=== PATIENT | male | born 1965 | race Two or more races ===

== ENCOUNTER → 2024-04-08 | Outpatient (CLI) | payer OTHER, MEDICAID, SELFPAY ==
[2024-04-15 06:45] LABS: Testosterone, Free,Dialysis 123.7 pg/mL (35.0-155.0); Testosterone, Total, Dialysis 637 ng/dL (250-1100)
== END | disposition home or self-care (01) ==
LOC: COPL 14:19
PROVIDERS: PCP Family Medicine; Referring Provider Nurse Practitioner Family; Visit Provider Nurse Practitioner Family
DX: E29.1 Testicular hypofunction (principal)
CPT/HCPCS: 36415; 84402; 84403

== ENCOUNTER → 2024-05-06 | Outpatient (CLI) | payer OTHER, MEDICAID, SELFPAY ==
--- NOTE | 2024-05-06 10:45 | XR_ITS ---
Examination: Abdomen sonogram, complete Date and time of exam: May 06, 2024 1022 hours INDICATIONS: Right lower abdominal pain beginning one year ago, history hernia surgery. Technique: Multiple real-time grayscale transabdominal sonographic images of the abdomen have been obtained. Findings: Normal gallbladder Normal common bile duct 0.5 cm Pancreatic head 3.0 cm Aorta not enlarged Liver 17.7 cm fatty infiltration focal fatty sparing Normal hepatopedal portal venous flow Patent IVC Right kidney 13.2 cm renal cortex 1.8 cm Left kidney 11.9 cm cortex 2.4 cm 29 mm upper pole cyst 8 mm midpole cyst left kidney Mild bilateral renal parenchymal scar formation Spleen 10.8 cm IMPRESSION: Normal gallbladder Hepatomegaly fatty liver
== END | disposition home or self-care (01) ==
LOC: CDIM 10:02
PROVIDERS: PCP Nurse Practitioner Family; Referring Provider Nurse Practitioner Family; Visit Provider Nurse Practitioner Family
DX: K76.0 Fatty (change of) liver, not elsewhere classified (principal)
CPT/HCPCS: 76700

== ENCOUNTER 2025-02-15 14:47 | Emergency (ER) | payer OTHER, MEDICAID, SELFPAY ==
[2025-02-15 15:00] VITALS: BP 154/98; PULSE 82; RESP 18; TEMP 36.7; O2SAT 95; BMI 29.9
--- NOTE | 2025-02-15 15:10 | XR_ITS ---
Examination: CT cervical spine without contrast 2-D sagittal reconstructions 2-D coronal reconstructions 3-D reconstructions. Exam date and time: November 16, 2024, 1548 hours INDICATIONS: Patient fell today with injury to the neck, neck pain CTDI:vol (mGy) 17.9 DLP: (mGycm) 430 Technique: Multiple 2 mm axial sections of the cervical spine have been obtained. The coronal and sagittal reconstructions have been obtained. 3-D reconstructions have been obtained. Low dose protocols were performed. One or more of the following dose reduction techniques were used; automated exposure control, adjustment of the mA and/or KV according to patient size, use of iterative reconstruction technique. Findings: Axial sections demonstrate intact base of the skull. C1 exhibit satisfactory relationship to the odontoid. No acute cervical vertebral body fracture seen. Alignment posterior spinous processes satisfactory. Impression: No acute cervical fracture.
--- NOTE | 2025-02-15 15:10 | XR_ITS ---
Examination: CT chest, without intravenous contrast. CT abdomen, without intravenous contrast. CT pelvis, without intravenous contrast. 2-D sagittal and coronal reconstructions. 3-D reconstructions. Date and time of exam: February 15, 2025, 1551 hours INDICATIONS: Patient fell today with injury to the chest and abdomen, chest pain abdomen pain CTDI vol (mgy) 9.24 DLP (MGycm) 745 Technique: Multiple CT images, 3.0 mm slice thickness, obtained chest, abdomen, pelvis, with the high-resolution 64 slice scanner.. Sagittal and coronal 2-D reconstructions are obtained. 3-D reconstructions Low dose protocols were performed. One or more of the following dose reduction techniques were used; automated exposure control, adjustment of the mA and/or KV according to patient size, use of iterative reconstruction technique. Findings: Thoracic aorta pulmonary arteries intact No hemopericardium Atelectasis in the lower lung zones No pneumothorax Manubrium sternum intact Thoracic lumbar vertebral bodies intact with advanced degenerative disc disease L5-S1 Acute nondisplaced fracture right sixth rib in the midaxillary line as well as mildly displaced right seventh rib posterolaterally No liver splenic or renal laceration Contracted gallbladder No pancreatic mass Abdominal aorta intact, no free blood in the abdomen 10 mm fat-containing umbilical hernia Normal appendix Negative for pneumoperitoneum Urinary bladder intact Bones of the pelvis hips intact IMPRESSION: Acute fractures right sixth and seventh ribs Thoracic aorta pulmonary arteries intact No pneumothorax pulmonary contusion or hemothorax No abdominal parenchymal laceration Abdominal aorta intact No free blood in the abdomen or pelvis
--- NOTE | 2025-02-15 15:10 | XR_ITS ---
Examination: Bilateral hands, 6 views. Technique: AP, Oblique, Lateral each hand total 6 views Date and time of exam: February 15, 2025, 1515 hours INDICATIONS: Patient fell out of a truck today with injury to both hands, bilateral hand pain. FINDINGS: No acute fracture involving either hand Old fracture base fifth metacarpal right hand Impression: No acute fracture
--- NOTE | 2025-02-15 15:10 | XR_ITS ---
Examination: CT brain head without contrast. 2-D sagittal coronal reconstructions Date and time of exam: February 15, 2025, 15 4 8 hours INDICATION: Patient fell today with injury to the head, head pain CTDI: vol (mGy): 53.1 DLP: (mGycm): 1065 Technique: Multiple CT axial sections of the brain have been obtained, 5 mm slice thickness. Contrast has not been administered. 2-D sagittal, coronal reconstructions have been obtained Low dose protocols were performed. One or more of the following dose reduction techniques were used; automated exposure control, adjustment of the mA and/or KV according to patient size, use of iterative reconstruction technique. Findings: No significant ventricular enlargement. Intra-axial or extra-axial hemorrhage density is not seen. No mass effect or midline shift Basal cisterns are not remarkable. Fourth ventricle is midline. Cranial vault intact. Impression: Negative for acute hemorrhage, mass effect or midline shift
--- NOTE | 2025-02-15 15:11 | XR_ITS ---
Examination: Shoulder, right, 3 views Technique: Shoulder AP internal rotation, AP external rotation, Y view shoulder, 3 views Exam date and time : January, 1513 hours INDICATIONS: Patient fell out of a truck today with injury of the shoulder, shoulder pain. FINDINGS: No fracture or dislocation No foreign body IMPRESSION: No fracture or dislocation
--- NOTE | 2025-02-15 15:12 | XR_ITS ---
EXAMINATION: Right femur 2 views TECHNIQUE: AP lateral right femur 2 views Date and time: February 15, 2025, 1525 hours INDICATION: Patient fell out of a truck today with injury of the femur, femur pain FINDINGS: No acute hip or femoral shaft fracture No hip dislocation IMPRESSION: No acute fracture
--- NOTE | 2025-02-15 15:12 | PD.EDRME ---
Rapid Medical Screening Exam RME Arrival date/time: 02/15/25 14:47 59-year-old male presents to the emergency room today stating that he had injury after falling off of his flatbed approximately 10 feet off the ground patient ports had neck injury as well as right leg bilateral hands and right shoulder pain Chief Complaint: Head Injury Vital signs: Vital Signs Temperature 98.1 F 02/15/25 15:00 Pulse Rate 82 02/15/25 15:00 Respiratory Rate 18 02/15/25 15:00 Blood Pressure 154/98 H 02/15/25 15:00 Pulse Oximetry (%) 95 02/15/25 15:00 Oxygen Delivery Method Room Air 02/15/25 15:00 Vital signs reviewed by provider: Yes Exam: On exam patient has swelling to the right hand as well as bruising around the right eye and tenderness of the right leg patient is ambulatory Clinical Impression: Imaging ordered
[2025-02-15] MEDS: HYDROcodone/APAP 5/325 TABLET 1 TAB PO (15:55)
--- NOTE | 2025-02-15 17:12 | EDNOTE_ITS ---
<Statement entered by Pallavi Hartley MD - 03/02/25 07:23> As co-signing physician, I was present and available for consult prn. I concur with the plan and care as documented by the midlevel provider. ED Fall Injury RME/HPI General Chief Complaint: Head Injury Stated Complaint: FALL FROM 10 FT PLATFORM; R) SIDED INJURIES, SOB Time Seen by Provider: 02/15/25 16:15 Arrival date/time: 02/15/25 14:47 59-year-old male patient was brought in by family for evaluation after patient fell from a 10 feet platform. Incident happened yesterday. Patient landed on the right side resulting to pain to the right lateral rib cage, worse with breast-feeding and coughing. Patient also complained of pain to the right wrist and hand. Denies any other injury. No other complaints noted patient is ambulatory. RME / HPI RME / HPI Narrative: 02/15/25 14:47 59-year-old male presents to the emergency room today stating that he had injury after falling off of his flatbed approximately 10 feet off the ground patient ports had neck injury as well as right leg bilateral hands and right shoulder pain Exam: On exam patient has swelling to the right hand as well as bruising around the right eye and tenderness of the right leg patient is ambulatory Impression: Imaging ordered Related Data Previous Rx's ?Medication ?Instructions ?Recorded docusate sodium 100 mg capsule 100 mg PO BID #40 caps 01/27/23 (Colace) hydrocodone 5 mg-acetaminophen 325 1 tab PO Q6H PRN pa in (scale score 01/27/23 mg tablet 7-10) #20 tabs ibuprofen 600 mg tablet 600 mg PO Q8H PRN pain (scal e 01/27/23 score 4-6) #15 tabs acetaminophen 300 mg-codeine 30 mg 1 tab PO TID PRN pa in #20 tabs 02/15/25 tablet lidocaine 5 % topical patch 1 patch topical QDAY #15 e a 02/15/25 Allergies Allergy/AdvReac Type Severity Reaction Status Date / Time naproxen Allergy Mild BLISTERS Verified 02/15/25 14:53 IN MOUTH Review of Systems Review of Systems Narrative Review of Systems: Review of system reviewed and within normal limits except mentioned in HPI ED Exam Narrative Physical exam: VITAL SIGNS: Reviewed. GENERAL APPEARANCE: Alert and interactive, follows commands, no acute distress, HEAD AND FACE: Non-traumatic. ENT: PERRL, pink conjunctivitis, eyelid no trauma, Mucous membrane moist. NECK: Supple, nontender, no nuchal rigidity. CHEST: Right lateral rib cage tenderness, no crepitus, no paradoxical movement, no retractions. LUNGS: Clear, well ventilated, symmetric, no rales, no wheezing, no ronchi, no stridor, good breath sounds bilaterally. HEART: Regular rate, regular rhythm, no murmur, no gallops. ABDOMEN: Soft, positive bowel sounds, nondistended, no guarding, nontender, no rebound, no masses, RECTAL: Deferred. GENITAL: Deferred. NEUROLOGICAL: Gross motor function intact sensory function intact, Appropriate for age. MUSCULOSKELETAL: low back nontender, full range of motion. EXTREMITIES: Right wrist tenderness, mild swelling no deformity, full range of motion. SKIN: Color pink, dry, no rash, no lacerations, no abrasions, no contusions. LYMPHATICS: Deferred. Course Quality Measures none Orders Category Date Time Status Incentive Spirometry Treatment NOW Care 02/15/25 17:[address] cervical spine wo con Stat Exams 02/15/25 15:[address] chest abdomen pelvis wo Stat Exams 02/15/25 15:[address] head/brain wo con Stat Exams 02/15/25 15:10 Completed XR femur RT 2V Stat Exams 02/15/25 15:12 Completed XR hand comp BI min 3V Stat Exams 02/15/25 15:10 Completed XR shoulder RT min 2V Stat Exams 02/15/25 15:11 Completed HYDROcodone*/APAP 5/325 [[place] 5/325] Med 02/15/25 15:10 Discontinued 1 tab PO X1 ONE Lidocaine 5% Patch Med 02/15/25 17:02 Discontinued 1 patch TOP X1 ONE Morphine* Inj Med 02/15/25 17:02 Discontinued 4 mg IM X1 ONE Ondansetron Odt [Zofran Odt] Med 02/15/25 17:02 Discontinued 4 mg PO X1 ONE Vital Signs Vital signs: Vital Signs Temperature 98.1 F 02/15/25 15:00 Pulse Rate 82 02/15/25 15:00 Respiratory Rate 18 02/15/25 15:00 Blood Pressure 154/98 H 02/15/25 15:00 Pulse Oximetry (%) 95 12/17/25 15:00 Oxygen Delivery Method Room Air 02/15/25 15:00 Fall MDM Narrative MDM Narrative:: 59-year-old male patient was brought in by family for evaluation after patient fell from a 10 feet platform. Incident happened yesterday. Patient landed on the right side resulting to pain to the right lateral rib cage, worse with breast-feeding and coughing. Patient also complained of pain to the right wrist and hand. Denies any other injury. No other complaints noted patient is ambulatory. CT scan of the head came back unremarkable. CT scan of the neck came back unremarkable. X-ray of the hand came back unremarkable., CT chest abdomen and pelvis showed nondisplaced fracture of the right 6th and 7th rib, no pneumothorax no hemothorax no lung contusion noted. X-ray shoulder also came back unremarkable x-ray of the femur came back unremarkable. Results discussed with the patient. Patient received morphine IM, lidocaine patch, and was also given incentive spirometry treatment and teaching. Stable for charged home satting 95% on room air Patient data External records reviewed:: None Clinical information provided by:: patient and family Social determinants that could affect healthcare access:: none Patient has the following chronic illnesses:: None How is presenting disease/condition affected by chronic disease/condition?: no chronic disease Evaluation data The following diagnostics were reviewed and interpreted by me:: radiology exam(s) Lab and/or radiology exams considered but not ordered:: None Interpretation Summary: See above Medications / Prescriptions Medications or Prescriptions considered but not ordered:: None Medication administrations:: Medication Administration History Discontinued Medications Hydrocodone Bitart/Acetaminophen (Hydrocodone/Apap 5/325 Tablet) 1 tab PO X1 ONE Stop: 02/15/25 15:11 Last Admin: 02/15/25 15:55 Dose: 1 tab Documented By: Lidocaine (Lidocaine 5% 1 Patch) 1 patch TOP X1 ONE Stop: 02/15/25 17:03 Morphine Sulfate (Morphine Sulf Inj 4 Mg/Ml Vial) 4 mg IM X1 ONE Stop: 02/15/25 17:03 Ondansetron HCl (Ondansetron Odt 4 Mg Tabrap) 4 mg PO X1 ONE; Protocol Stop: 02/15/25 17:03 See above Consultations Consultation(s) initiated? (list below): No Diagnosis Fall Differential Diagnosis: other (Chest wall contusion, rib fracture, fall, wrist sprain) Most likely diagnosis given after review of the tests above:: Chest wall contusion, rib fracture, fall, wrist sprain Admission Indicated Admission indicated?: not indicated Admission Request Was there a request for admission?: No Disposition Plan Disposition Plan: Discharge Discharge Attestation Discharge Attestation: The patient and all family members were given an opportunity to ask questions and understood the discharge instructions. Discharge instructions specifically effects, indications for sooner follow up or return to the emergency department, and the expected course of current diagnosis. Patient condition: Stable Discharge Plan Plan Patient Disposition: HOME (Self Care) Discharge Disposition comment: stable Prescriptions/Referrals Prescriptions/Med Rec: New lidocaine 5 % adhesive patch,medicated 1 patch topical QDAY Qty: 15 0RF Rx Instructions: leave on most painful area for up to 12 hrs acetaminophen-codeine 300-30 mg tablet 1 tab PO TID PRN (Reason: pain) Qty: 20 0RF No Action docusate sodium [Colace] 100 mg capsule 100 mg PO BID Qty: 40 0RF hydrocodone-acetaminophen 5-325 mg tablet 1 tab PO Q6H MDD 4 PRN (Reason: pain (scale score 7-10)) Qty: 20 0RF ibuprofen 600 mg tablet 600 mg PO Q8H PRN (Reason: pain (scale score 4-6)) Qty: 15 0RF Problem List Clinical Impression: Fracture, ribs, Sprain of wrist, Fall Patient/Caregiver Discharge Instructions Discharge Activity: activity as tolerated Education Materials: ED Rib Fracture Additional Instructions: Thank you for the opportunity for serving you today. You are stable for discharged . You are advised to: Follow-up with your PCP in 1 to 2 days Return to ED for worsening of symptoms Increase oral fluids Take medication as prescribed Use your incentive spirometry as instructed Print Language: Swazi Stand Alone Forms: Mary Award Info., Patient Portal Info Letter PA/LUBNA Supervising Physician PA/LUBNA Supervising Physician: MD Deshawn
[2025-02-15] MEDS: ONDANSETRON ODT 4 MG TABRAP PO (18:02)
[2025-02-15] MEDS: LIDOCAINE 5% 1 PATCH TOP (18:02)
[2025-02-15] MEDS: MORPHINE SULF INJ 4 MG/ML VIAL IM (18:04)
== END 2025-02-15 18:45 | disposition home or self-care (01) ==
LOC: SERX 17:21
PROVIDERS: Emergency Provider Emergency Medicine; PCP Family Medicine
DX: S22.41XA Multiple fractures of ribs, right side, initial encounter for closed fracture (principal); S63.501A Unspecified sprain of right wrist, initial encounter; S69.92XA Unspecified injury of left wrist, hand and finger(s), initial encounter; S00.11XA Contusion of right eyelid and periocular area, initial encounter; S69.91XA Unspecified injury of right wrist, hand and finger(s), initial encounter; S49.91XA Unspecified injury of right shoulder and upper arm, initial encounter; S79.921A Unspecified injury of right thigh, initial encounter; S19.9XXA Unspecified injury of neck, initial encounter; S09.90XA Unspecified injury of head, initial encounter; S39.91XA Unspecified injury of abdomen, initial encounter; W17.89XA Other fall from one level to another, initial encounter
CPT/HCPCS: 70450; 71250; 72125; 73030; 73130; 73552; 74176; 96372; 99283; J2270; J3490; Q0162; A9270